=== PATIENT | male | born 1975 | race Hispanic/Latino ===

== ENCOUNTER → 2022-12-28 | Day surgery (SDC) | payer BC ==
[~2022-12-28] MED LIST: ACETAMINOPHEN-1 EAC4 PO; ALLOPURINOL100 MG PO; BUPIVACAINE HCL 0.5% 10ML MPF VIAL INJ ONE; DEXAMETHASONE SOD PHOS INJ 4 MG/ML SDV ONE; FENTANYL CITRATE/PF 100MCG/2 ML INJ ONE; KETOROLAC TROMETHAMINE 30 MG/ML VIAL ONE; LIDOCAINE HCL 2% LOCAL INJ 5 ML SDV VIAL INJ ONE; MULTI-VITAMIN1 EACH PO; MUPIROCIN 2% OINT 22 GM TUBE ONE; ONDANSETRON HCL INJ 2MG/ML 2ML 2 MG/ML VIAL ONE; POVIDONE IODINE 0.05% 0.05 % ML PO ONE; PROPOFOL IV EMULSION 10 MG/ML 20 ML VIAL ONE; PROTONIX40 MG PO; SEVOFLURANE INHAL SOLN 250 ML PEN BTL ONE
[2022-12-28 08:45] VITALS: BP 122/80
== END | disposition home or self-care (01) ==
LOC: OR 06:07
PROVIDERS: ATTEND Plastic Surgery
DX: M67.431 Ganglion, right wrist (principal); K21.9 Gastro-esophageal reflux disease without esophagitis; M10.9 Gout, unspecified; I10 Essential (primary) hypertension; Z01.810 Encounter for preprocedural cardiovascular examination; Z79.899 Other long term (current) drug therapy
CPT/HCPCS: 25111; 88304; 93005; J0690; J1100; J1885; J2001; J2405; J2704; J3010